=== PATIENT | male | born 1965 | race Caucasian/White ===

== ENCOUNTER 2019-11-10 15:57 | Observation (INO) | payer OTHER ==
[~2019-11-10] VITALS: Ht 175.3 cm; Wt 68.6 kg
--- NOTE | ~2019-11-10 | HEMODYNAMI ---
PATIENT:RAMSES KIMBALL MEDICAL RECORD: [id number] : 67 [id number] ADMISSION DATE: 11/10/19 Generatedon:11/11/201910:52 Patient name: RAMSES KIMBALL Patient #: [id number] : 1965 Date of study: 11/11/2019 Page: Of Hemodynamic Procedure Report Patient Data Patient Demographics Procedure consent was obtained First Name: RAMSES Gender: Male Last Name: JIGAR : 1965 Middle Initial: ROBLES Age: 54 year(s) Patient #: [id number] Race: SSN: [id number] Additional ID: [id number] Contact details Address: [address] [place] [address] circle State: [place] City: [place] Zip code: [address] Admission Admission Data Admission Date: 11/10/2019 Admission Time: 17:29 Arrival Date: 11/11/2019 Arrival Time: 17:29 Admit Source: Other Insurance Payor: Private Room #: D.2122 health insurance [facility] #: [id number] Height (in.): 68.9 BSA: 1.84 (m2) Height (cm.): 175 BMI: 22.53 (kg/m2) Weight (lbs.): 152.12 Weight (kg.): 69 Lab Results Lab Result Date: 11/11/2019 Lab Result Time: 0:00 Biochemistry Name Units Result Min Max BUN mg/dl 13 --(--*-)-- 7 18 Creatinine mg/dl 1 --(--*-)-- 0.6 1.3 eGFR ml/min 90 --(*---)-- 90 120 NONAFRICAN CBC Name Units Result Min Max Hemoglobin g/dl 15.3 --(-*--)-- 13.5 17.5 Procedure Procedure Types Cath Procedure Diagnostic Procedure LHC LHC w/Coronaries Peripheral Cath Diagnostic Procedure Delivery Man Peripheral Procedures Four Vessel Arteriogram Procedure Description Procedure Date Procedure Date: 11/11/2019 Procedure Start Time: 10:26 Procedure End Time: 10:41 Procedure Staff Name Function Mary Grace Barrington RT Monitor Zaid Hardy RN Nurse Jose Li MD Performing Physician Jaclyn Perez RT Scrub Indication Angina Procedure Data Cath Procedure Entry Location Entry Primary Successful Side Size Upsize Upsize Entry Closure Succes sful Closure Location (Fr) 1 (Fr) 2 (Fr) Remarks Device Remarks Femoral Right 5 Fr 6 Fr Exoseal artery Short Estimated blood loss: 5 ml Diagnostic catheters Device Type Used For End Catheter Placement MULTIPACK JL 4.0 5Fr Left Coronary catheter Angiography MULTIPACK 3DRC 5Fr Right Coronary catheter Angiography MULTIPACK Pigtail 5 Fr LV Angiography catheter Procedure Complications No complications Procedure Medications Medication Administration Route Dosage Oxygen etCO2 Nasal cannula 2 l/min Lidocaine 2% added to field 20 Heparin Flush Bag added to field 2 bags (1000units/500ml NS) 0.9% NaCl I.V. 100 ml/hr Versed I.V. 2 mg Fentanyl I.V. 50 mcg Versed I.V. 2 mg Fentanyl I.V. 50 mcg Heparin Bolus I.V. 4000 units Integrilin (Bolus I.V. 6.2 ml 2mg/ml) Plavix P.O. 600 mg Hemodynamics Rest HGB: 15.3 (g/dl) O2 Consumption: Estimated: 232.87 (ml/min) O2 Consumption index ed: Estimated:126.56 (ml/min/m) Heart Rate: 90 (bpm) Pressure Samples Time Site Value (mmHg) Purpose Heart Use Rate(bpm) 10:33 LV 132/14,22 Snapshot 97 10:34 AO 123/79(101) Pullback 93 Gradients Valve Time Site Site 2 Mean SEP/DFP Peak To Heart Use 1 (mmHg) (sec/min) Peak Rate (mmHg) (bpm) Aortic 10:34 LV AO 34 35 93 123/79(101) Calculations Valve P-P Mean Valve Index Valve Source Name Gradient Area Flow (cm2) Aortic 34 34 Snapshots Pre Cath Intra NCS Post Cath Vital Signs Time Heart Resp SPO2 etCO2 NIBP (mmHg) Rhythm Pain Sedation Rate (ipm) (%) (mmHg) Status Level (bpm) 10:21:34 91 14 96 0 137/96(108) NSR 0 (11) 10(A) , No pain 10:25:46 99 15 95 0 108/82(86) NSR 0 (11) 10(A) , No pain 10:29:44 87 18 94 17.3 129/88(118) NSR 0 (11) 10(A) , No pain 10:33:46 91 10 98 18.1 119/97(105) NSR 0 (11) 9(A) , No pain 10:37:51 87 11 98 15.1 109/78(92) NSR 0 (11) 9(A) , No pain 10:41:51 95 21 97 24.9 116/83(92) NSR 0 (11) 10(A) , No pain Medications Time Medication Route Dose Verified Delivered Reason Notes Effectiveness by by 10:20:29 0.9% NaCl I.V. 100 Jose Buffie Per physician ml/hr St El Hardy RN, MD 10:20:40 Oxygen etCO2 2 Jose Eugeneie used for Nasal l/min [facility] El Hardy RN procedure cannula 10:20:46 Lidocaine 2% added 20ml Jose Garcia for local to vial [facility] anesthetic field MD BRYAN 10:20:53 Heparin Flush added 2 Jose Jose used for Bag to bags [facility] procedure (1000units/500ml field MD BRYAN NS) 10:26:34 Versed I.V. 2 mg Jose Eugeneie for sedation [facility] El Hardy RN, MD 10:27:40 Fentanyl I.V. 50 Jose Buffie for sedation mcg [facility] El Hardy RN, MD 10:28:44 Versed I.V. 2 mg Jose Mar for sedation St El Hardy RN, MD 10:28:48 Fentanyl I.V. 50 Jose Mar for sedation mcg [facility] El Hardy RN, MD 10:35:09 Heparin Bolus I.V. 4000 Jose Eugeneie for verif ied units St El Hrady RN anticoagulation with dr MD anaya 10:37:27 Integrilin I.V. 6.2 Jose Mar for waste d (Bolus 2mg/ml) ml St El Hardy RN antiplatelet 3.8 ml therapy of vial 10:46:57 Plavix P.O. [address] Jose Mar for mg [facility] El Hardy RN antiplatelet therapy Procedure Log Time Note 10:01:37 Informed consent obtained and on chart 10:03:16 Admit Source: Other 10:03:25 Arrival Date: 11/11/2019 5:29:00 PM 10:05:13 Insurance Payor : Private health insurance 10:05:54 Patient Height : 68.9 inches 10:05:59 Patient Weight : 152.12 lbs 10:07:54 Lab Result : eGFR NONAFRICAN 90 ml/min 10::54 Lab Result : Hemoglobin 15.3 g/dl 10::54 Lab Result : BUN 13 mg/dl 10::54 Lab Result : Creatinine 1 mg/dl 10:08:01 Diagnostic Cath Status : Elective 10:08:24 Indication : Angina 10:08:30 Procedure Status Urgent Heart Cath (IP). 10:08:32 Jaclyn Chris RT(R) sent for patient. Start room use. 10:08:33 Time tracking: Regular hours (M-F 7:00 - 5:00) 10:08:38 Plan of Care:Hemodynamics will remain stable., Cardiac rhythm will remain stable., Comfort level will be maintained., Respiratory function will remain adequate., Patient/ family verbilizes understanding of procedure., Procedure tolerated without complication., Recovers from procedure without complications.. 10:11:02 Patient received from Med II to CCL 1 Alert and oriented. Tansferred to table in Supine position. 10:11:04 Warm blankets applied, and lloyd hugger turned on for patient comfort. 10:11:05 Correct patient and procedure confirmed by team. 10:11:06 ECG and BP/O2 sat monitors applied to patient. 10:20:29 0.9% NaCl 100 ml/hr I.V. was administered by Zaid Hardy RN; Per physician; Verbal order read back and verified. 10:20:40 Vital chart was started 10:20:40 Oxygen 2 l/min etCO2 Nasal cannula was administered by Zaid Hardy RN; used for procedure; Verbal order read back and verified. 10:20:41 Baseline sample Acquired. 10:20:44 Rhythm: sinus rhythm 10:20:46 Lidocaine 2% 20ml vial added to field was administered by Jose Li MD; for local anesthetic; Verbal order read back and verified. 10:20:46 Full Disclosure recording started 10:20:50 H&P Date Dictated: 11/11/2019 New H&P dictated by physician.. 10:20:52 Pre-op teaching completed and patient verbalized understanding. 10:20:52 Pre-procedure instructions explained to patient. 10:20:53 Heparin Flush Bag (1000units/500ml NS) 2 bags added to field was administered by Jose Li MD; used for procedure; Verbal order read back and verified. 10:20:54 Family in waiting room. 10:20:55 Patient NPO since Midnight. 10:21:12 Is the patient allergic to Iodine/contrast media? No. 10:21:13 Was the patient premedicated? Yes 10:21:14 Is patient on blood thinner?Yes 10:21:17 ACC The patient was administered the following blood thiners within the last 24 hours: Xarelto 10:21:20 Patient diabetic? No. 10:21:25 Previous problem with sedation/anesthesia? No ? 10:21:27 Snore? Yes 10:21:28 Sleep apnea? No 10:21:29 Opens mouth fully? Yes 10:21:29 Deviated septum? No 10:21:30 Sticks out tongue? Yes 10:21:34 Airway obstruction? No ? 10:21:37 Dentures? No ? 10:21:42 Pre procedure: right dorsailis pedis pulse 2+ Normal; easily identifiable; not easily obliterated 10:21:45 Pre procedure: left dorsailis pedis pulse 2+ Normal; easily identifiable; not easily obliterated 10:21:47 Patient pain scale 0/10 ?. 10:21:58 IV patent on arrival in right forearm with 0.9% NaCl at KVO. 10:22:00 Lab results completed and on chart. 10:22:06 Stress Test: no; N/A ? 10:25:20 Right groin area was prepped with chlora-prep and draped in sterile fashion 10:25:21 Sharps counted by scrub and verified by R.N. 10:25:21 Alarms reviewed by R. N. 10::23 --------ALL STOP TIME OUT------ 10:25:23 Physician arrived 10:25:24 Final Timeout: patient, procedure, and site verified with staff and physician. All members of the team are in agreement. 10:25:25 Right groin site verified by team. 10:25:29 Fire Safety Assessment: A--An alcohol-based skin anteseptic being used preoperatively., C--Open oxygen or nitrous oxide is being used., D--An ESU, laser, or fiber-optic light is being used. 10:25:32 Physical assessment completed. ASA score P 2 - A patient with mild systemic disease as per Jose Li MD. 10:25:37 1) 90+ Normal kidney functon but urine findings or structural abnormalities or genetic trait point to kidney disease. 10:25:44 Maximum allowable contrast dose (3.7 X eGFR X 0.75)249 ml. 10:25:48 Sedation plan: IV Moderate Sedation Medication:Versed, Fentanyl 10:26:23 Use device set Femoral Dx 10:26:24 Bag Decanter (2002S) opened to sterile field. 10:26:24 ACIST Syringe (03739) opened to sterile field. 10:26:25 Medline Cath Pack ([id number]) opened to sterile field. 10:26:26 ACIST Hand Control (79536) opened to sterile field. 10:26:27 DIAGNOSTIC Multipack 5Fr catheter set (SV1288) opened to sterile field. 10:26:27 ACIST Manifold (83699) opened to sterile field. 10:26:34 Versed 2 mg I.V. was administered by Zaid Hardy RN; for sedation; Verbal order read back and verified. 10:26:35 EMERALD Guide Wire (941-447) opened to sterile field. 10:26:35 SHEATH 5FR Spangle (WUC821) opened to sterile field. 10:26:39 Procedure started. 10:26:41 Local anesthetic to right femoral artery with Lidocaine 2% by Jose Li MD.INITIAL ACCESS ONLY 10:26:51 A 5 Fr sheath was inserted into the Right Femoral artery 10:27:04 A MULTIPACK JL 4.0 5Fr catheter was advanced over the wire and used for Left Coronary Angiography. 10:27:40 Fentanyl 50 mcg I.V. was administered by Zaid Hardy RN; for sedation; Verbal order read back and verified. 10:27:42 LCA angiography performed. 10:27:48 Injector settings: Ml/sec: 3, Volume: 6, 10:27:59 Procedure type changed to Cath procedure, Diagnostic procedure, LHC, LHC w/Coronaries, Peripheral Cath Diagnostic Procedure, Delivery Man Peripheral Procedures, Four Vessel Arteriogram 10:28:36 Catheter removed. 10:28:41 A MULTIPACK 3DRC 5Fr catheter was advanced over the wire and used for Right Coronary Angiography. 10::44 Versed 2 mg I.V. was administered by Zaid Hardy RN; for sedation; Verbal order read back and verified. 10:28:48 Fentanyl 50 mcg I.V. was administered by Zaid Hardy RN; for sedation; Verbal order read back and verified. 10:29:36 RCA angiography performed. 10::44 Injector settings: Ml/sec: 3, Volume: 6, 10:29:54 Bilateral carotid angiography performed. 10:32:54 Catheter removed. 10:32:59 A MULTIPACK Pigtail 5 Fr catheter was advanced over the wire and used for LV Angiography. 10:33:30 LV hemodynamics recorded. 10:33:31 LV gram done using GARCIA 10:33:34 Injector settings: Ml/sec: 5, Volume: 15, 10:34:22 EF : 55 % 10:34:25 Catheter removed. 10:34:26 Proceeding to intervention. 10:34:41 SHEATH 6FR Spangle (EFC850) opened to sterile field. 10:34:45 WHISPER 300cm guide wire ([id number]) opened to sterile field. 10:34:59 GUIDE 6FR XBLAD 3.5 catheter ([id number]) opened to sterile field. 10:35:00 INFLATOR Merit BasixCompak (MH2706) opened to sterile field. 10:35:09 Heparin Bolus 4000 units I.V. was administered by Zaid Hardy RN; for anticoagulation; verified with dr anaya Verbal order read back and verified. 10:35:25 Sheath upsized to a 6 Fr Short. 10:35:31 6 Fr XBLAD 3.5 guide catheter was inserted over the wire 10:35:36 WHISPER wire advanced. 10:36:44 Wire advanced across lesion. 10:37:27 Integrilin (Bolus 2mg/ml) 6.2 ml I.V. was administered by Zaid Hardy RN; for antiplatelet therapy; wasted 3.8 ml of vial Verbal order read back and verified. 10:39:53 Place stent Inflation Number: 1 A ELYSE OTW 3.0 x 26 stent ([id number]) was prepped and advanced across the Prox LAD 80. The stent was deployed at 14 LOY for 0:30 (min:sec) 0. 10:40:22 Stent catheter was removed intact over wire. 10:40:23 Guide catheter removed. 10:40:23 Wire removed. 10:40:30 EXOSEAL 6Fr (EX600) opened to sterile field. 10:40:43 Sheath removed intact; hemostasis achieved with Exoseal to the Right Femoral artery. 10:40:46 Procedure ended.(Physican Out) 10:41:18 Post Procedure Pulses reassessed and unchanged 10:41:21 Post procedure rhythm: unchanged. 10:41:23 Estimated blood loss: 5 ml 10:41:25 Patient needs reinforcement of post procedure teaching. 10:41:25 Post procedure instruction explained to patient.Patient verbalizes understanding. 10:41:31 Procedure Complication : No complications 10:41:33 Vital chart was stopped 10:41:35 [facility] Findings: MVD- PCI performed (see procedure note) 10:41:39 See physician's report for complete and final results. 10:41:39 Operative report dictated upon procedure completion. 10:41:41 Report given to Med II. 10:41:44 Full Disclosure recording stopped 10:41:44 Procedure ended. 10:42:06 ACC-PCI Only Patient was given prescriptions, or instructed by Jose Li MD to start/continue the following medications upon discharge: Plavix 10:42:11 End room use (Document Last) 10:46:57 Plavix 600 mg P.O. was administered by Zaid Hardy RN; for antiplatelet therapy; Verbal order read back and verified. 10:47:36 ACT drawn and resulted at 252 seconds. (normal therapeutic range 180-240 seconds). Intervention Summary Intervention Notes Time ActionType Lesion and Equipment Action# Pressure Duration Attributes Used 10:39:53 Place stent Prox LAD ELYSE OTW 3.0 1 14 00:30 x 26 stent ([id number]) Device Usage Item Name Manufacture Quantity Catalog Hospital Part Current Mini mal Lot# / Number Charge Number Stock Stock Serial# Code ACIST Syringe Acist 1 93184 312835 697195 136830 20 (87182) Medical Zentric Inc Bag Decanter Microtek 1 281994 70994 724604 5 () Pebble Inc. Medline Cath Medline 1 [id number] 442796 64612 298369 5 Pack ([id number]) ACIST Hand Acist 1 05240 867686 776382 422799 5 Control Medical (04426) Systems Inc ACIST Acist 1 80475 249335 320075 927917 5 Manifold Medical (38538) Systems Inc DIAGNOSTIC Cardinal 1 [id number] 236247 10765 134639 30 Multipack 5Fr Health catheter set (SB0317) SHEATH 5FR Terumo 1 FZE352 915082 844085 096403 5 Spangle (EQC166) EMERALD Guide Cardinal 1 502-455 606651 566932 084978 5 Wire Health (502-455) MULTIPACK JL Cardinal 1 915222 5 4.0 5Fr Health catheter MULTIPACK Cardinal 1 590900 5 3DRC 5Fr Health catheter MULTIPACK Cardinal 1 893928 5 Pigtail 5 Fr Health catheter SHEATH 6FR Terumo 1 EDJ345 898227 826105 366597 40 Spangle (XQP760) WHISPER 300cm Ngo 1 [id number] 482218 434828 515340 5 guide wire Vascular (3564325ZC) GUIDE 6FR Cardinal 1 [id number] 441634 197047 728813 10 XBLAD 3.5 Health catheter (72310456) INFLATOR Merit 1 XJ5978 954985 081828 912059 15 [facility] Medical BasixCompak (CI7390) ELYSE OTW 3.0 Medtronic 1 [id number] 623529 7192488 675777 5 [id number] x 26 stent ([id number]) EXOSEAL 6Fr Cardinal 1 EX600 965165 007317 696867 10 (EX600) Health Signature Audit [place] Stage Time Signature Unsigned Intra-Procedure 11/11/2019 Mary Grace Ferris 10:45:20 AM RT(R) Intra-Procedure 11/11/2019 Zaid Hardy RN 10:45:55 AM Intra-Procedure 11/11/2019 Mary Grace Ferris 10:50:37 AM RT(R); Jose Li MD [facility] [address] [place] [address]
[2019-11-10] MEDS ORDERED: LISINOPRIL20 MG PO (16:05)
[2019-11-10] MEDS ORDERED: LIPITOR80 MG PO (16:05)
[2019-11-10 16:23] LABS: BASOPHILS 0.3 % (0-2); HEMATOCRIT 43.5 % (42.0-54.0); HEMOGLOBIN 15.3 g/dL (13.5-17.5); IMMATURE GRANULOCYTES 0.3 % (0-5); LYMPHOCYTES 28.2 % (15-50); MCH 32.4 pg (26.0-34.0); MCHC 35.2 g/dL (31.0-37.0); MCV 92.2 fL (80.0-100.0); MEAN PLATELET VOLUME 8.3 fL (7.4-10.4); MONOCYTES 9.5 % (2-11); NEUTROPHILS 59.7 % (40-80); PLATELET COUNT 191 10x3/uL (130-400); RBC 4.72 10x6/uL (4.20-6.10); RDW 12.1 % (11.5-14.5); WBC 7.6 10x3/uL (4.8-10.8)
[2019-11-10 16:33] VITALS: BP 157/96
[2019-11-10 16:40] LABS: APTT 27.6 SECONDS (22.8-39.4); CALC OSMOLALITY 270 mosm/kg (275-300); CALCIUM 10.4 mg/dL (8.5-10.1); CHLORIDE - SERUM 98 mmol/L (98-107); GLUCOSE 118 mg/dL (74-106); INR 0.88 (0.85-1.17); POTASSIUM - SERUM 3.9 mmol/L (3.5-5.1); SODIUM 135 mmol/L (136-145); UREA NITROGEN 13 mg/dL (7-18); eGFR NON AFRICAN AMERICAN 83 mL/min (90-120)
[2019-11-10 16:57] LABS: ALBUMIN 4.2 g/dL (3.4-5.0); ALKALINE PHOSPHATASE 53 U/L (46-116); ALT (SGPT) 33 U/L (10-68); BILIRUBIN - TOTAL 0.35 mg/dL (0.2-1.3); CKMB 1.5 U/L (0.0-3.6); CREATINE KINASE 112 UL (21-232); MAGNESIUM - SERUM 1.9 mg/dL (1.8-2.4); PROTEIN - SERUM 7.9 g/dL (6.4-8.2)
[2019-11-10 16:58] LABS: TROPONIN-I < 0.017 ng/mL (0.000-0.060)
[2019-11-10 17:30] VITALS: BP 143/84
[2019-11-10 18:30] VITALS: BP 130/93
[2019-11-10 19:30] VITALS: BP 131/87
[2019-11-10] MEDS ORDERED: TRAZODONE HCL150 MG PO (21:32)
--- NOTE | 2019-11-10 21:44 | NUR ---
RECEIVED FROM ER, PT IS A&OX4, 20G.-RFA, PROVIDED A SANDWICH AND DRINK, HISTORY AND MEDS REVIEWED, PT ASK ME TO CALL DARWIN , LEFT MESSAGE AND NUMBER TO ROOM, BED IS LOW, SRX2, CALL LIGHT IN REACH, WILL CONTINUE PLAN OF CARE
[2019-11-11] VITALS: BP 139/92
[2019-11-11 00:24] VITALS: BP 131/94; Ht 175.3 cm; Wt 68.6 kg
[2019-11-11 00:45] LABS: CKMB 1.2 U/L (0.0-3.6); CREATINE KINASE 111 UL (21-232); TROPONIN-I < 0.017 ng/mL (0.000-0.060)
[2019-11-11 04:00] VITALS: BP 140/103
[2019-11-11 06:24] LABS: CKMB 1.4 U/L (0.0-3.6); CREATINE KINASE 103 UL (21-232); TROPONIN-I < 0.017 ng/mL (0.000-0.060)
--- NOTE | 2019-11-11 08:18 | NUR ---
ALERT AND ORIENTED. DENIES ANY PAIN. TELEMERTY SHOWS SR 95. RIGHT FA SL. UP AB PAULY. AWAITING DOCTOR FOR FUTHER ORDERS
[2019-11-11 09:16] LABS: BASOPHILS 0.3 % (0-2); EOSINOPHILS 1.5 % (0-7); HEMATOCRIT 42.1 % (42.0-54.0); HEMOGLOBIN 14.2 g/dL (13.5-17.5); IMMATURE GRANULOCYTES 0.2 % (0-5); LYMPHOCYTES 29.4 % (15-50); MCH 31.5 pg (26.0-34.0); MCHC 33.7 g/dL (31.0-37.0); MCV 93.3 fL (80.0-100.0); MONOCYTES 11.3 % (2-11); NEUTROPHILS 57.3 % (40-80); PLATELET COUNT 215 10x3/uL (130-400); RBC 4.51 10x6/uL (4.20-6.10); RDW 12.3 % (11.5-14.5)
[2019-11-11 09:18] LABS: WBC 9.9 10x3/uL (4.8-10.8)
[2019-11-11 09:34] LABS: ALT (SGPT) 30 U/L (10-68); CALC OSMOLALITY 272 mosm/kg (275-300); CALCIUM 9.5 mg/dL (8.5-10.1); CARBON DIOXIDE 29.4 mmol/L (21.0-32.0); CHLORIDE - SERUM 99 mmol/L (98-107); CHOL - HDL RATIO 6.3 ratio (2.3-4.9); CHOLESTEROL, TOTAL 263 mg/dL (0-200); GLUCOSE 93 mg/dL (74-106); HDL CHOLESTEROL 42 mg/dL (32-96); SODIUM 136 mmol/L (136-145); UREA NITROGEN 16 mg/dL (7-18); eGFR NON AFRICAN AMERICAN 83 mL/min (90-120)
[2019-11-11 09:35] LABS: POTASSIUM - SERUM 5.1 mmol/L (3.5-5.1); TRIGLYCERIDE 592 mg/dL (30-200)
--- NOTE | 2019-11-11 11:28 | NUR ---
BACK FROM ASSOCIATE PATHOLOGIST. VS STABLE. RIGHT GROIN SOFT WITH DRSG DRY AND INTACT. PPP. TELEMERTY SHOWS SR. WILL MONITOR
[2019-11-11 12:00] VITALS: BP 107/78
--- NOTE | 2019-11-11 13:50 | NUR ---
PT SLEEPING. RIGHT GROIN SOFT WITH DRSG DRY AND INTACT.PPP. NO NEEDS NOTED. WILL MONITOR
[2019-11-11] MEDS ORDERED: FENOFIBRATE160 MG PO (16:32)
[2019-11-11] MEDS ORDERED: LOW DOSE ASPIRI81 M1 PO (16:39)
[2019-11-11] MEDS ORDERED: PLAVIX75 MG PO (16:39)
--- NOTE | 2019-11-11 17:57 | NUR ---
PT DISCHARGED. IV DCD WITH TIP INTACT. RIGHT GROIN SOFT, NO BLEEDING. INSTRUCTIONS GIVEN. TO PRIVATE CAR PER WHEEL CHAIR
--- NOTE | 2019-11-12 09:17 | MORECARE ---
CASE MANAGEMENT DISCHARGE SUMMARY PATIENT: RAMSES KIMBALL RAY UNIT: [id number] ADM DATE: 11/10/19 AGE: 54 : 67 SEX: M ROOM/BED: D.7612 AUTHOR: ARMANDO BYRD PHYSICIAN: REFERRING PHYSICIAN: DANIEL PONCE MD DATE OF SERVICE: 11/12/19 Discharge Plan Patient Name: RAMSES KIMBALL [facility] [facility] 1965 Planned Disposition: Home Anticipated Discharge Date: 11/11/19 Discharge Date: 11/11/2019 Expected LOS: 1 Initial Reviewer: [id number] Initial Review Date: 11/12/2019 Generated: 11/12/19 10:17 am Patient Name: RAMSES KIMBALL Page 33093 at 0917 All edits/amendments must be made on the electronic document DICTATION DATE: 11/12/19916 MOLD HOISTER: JAEL 11/12/19916 RPT#: [id number] DC DATE:11/11/19 STATUS: DIS IN [facility] [address] [place] [address] END OF REPORT
--- NOTE | 2019-11-12 12:18 | CN ---
PATIENT NAME:RAMSES KIMBALL MEDICAL RECORD: [id number] : 67 LOCATION:. D.2122 ADMIT DATE: 11/10/19 ACCOUNT: [id number] CONSULTING PHYSICIAN: VINCENT MATA MD REFERRING PHYSICIAN: DANIEL PONCE MD DATE OF CONSULTATION: 11/11/2019 HISTORY OF PRESENT ILLNESS: A 54-year-old gentleman with a history of hypertension, familial hyperlipidemia, coronary artery disease, presented with chest tightness, pressure radiating to the jaw, additionally reports left arm numbness and tingling accompanied by visual changes consistent with amaurosis fugax. Symptoms being progressing since Tuesday. We are asked to see him concerning his cardiovascular status. PAST MEDICAL HISTORY: Includes: 1. History of hypertension. 2. Hyperlipidemia. ALLERGIES: PENICILLIN. MEDICATIONS: Include lisinopril 20 mg p.o. day, atorvastatin 80 mg p.o. daily, trazodone 100 mg p.o. at bedtime. SOCIAL HISTORY: Smokes about a pack a day, nondrinker. No set exercise program. REVIEW OF SYSTEMS: The patient reports easy bruising but reports no swollen glands. The patient reports no fever, no night sweats, no significant weight gain, no significant weight loss. No significant exercise tolerance. The patient reports no dry eyes, no irritation, no vision change. Patient reports no difficulty hearing and no ear pain. Patient reports no frequent nose bleeds or nose and sinus problems. Patient reports on arm pain on exertion. No shortness of breath while lying down. No history of heart murmur. Patient reports no cough, no wheezing or coughing up blood. Patient reports no abdominal pain, no vomiting. Normal appetite. No diarrhea and not vomiting blood. No nausea and no constipation. Patient reports no incontinence. No difficulty urinating. No hematuria. No increased frequency. Patient reports no muscle aches. No weakness, no arthralgias, no back pain. No swelling of the extremities. Patient reports no abnormal mole, no jaundice, no rashes. Reports no loss of consciousness. No weakness and no numbness. No seizures, dizziness, or headaches. The patient reports no depression, no sleep disturbance, feeling safe in a relationship and no alcohol abuse. Patient reports on fatigue. Reports no runny nose or sinus pressure. No itching, no hives, and no frequent sneezing. PHYSICAL EXAMINATION: GENERAL: Pleasant gentleman, in no acute distress. VITAL SIGNS: Blood pressure 140/103, pulse 88 and regular. HEENT: Normocephalic, atraumatic. NECK: No bruits noted. HEART: Regular. LUNGS: Fair air excursion, few expiratory wheezes. ABDOMEN: Soft, nontender. EXTREMITIES: Pulse 2+. No edema. CONSULT REPORT [id number] JIGAR,URBAN RAY DIAGNOSTIC DATA: EKG shows nonspecific ST-T changes inferolaterally. IMPRESSION: 1. Acute coronary syndrome. Multiple risk factors including ECG changes inferolaterally. 2. Amaurosis fugax with visual changes and left arm numbness and tingling. PLAN: We will plan for angiography as well as 4-vessel arteriography and intervention based on above. TRANSINT:[id number] Voice Confirmation ID: [id number] DOCUMENT ID: [id number] VINCENT MATA MD at 1218 CC: [id number] DICTATION DATE: 11/11/19 1013 KNOT CUTTER: 11/11/19 1243 DIS IN 11/11/19 [facility] [address] [place] [address]
--- NOTE | 2019-11-12 12:18 | OP ---
PATIENT NAME: RAMSES KIMBALL MEDICAL RECORD: [id number] :67 LOCATION:D.M2 D.2122 ADMISSION DATE:11/10/19 SURGEON: VINCENT MATA MD DATE OF OPERATION: 11/11/2019 PROCEDURES: Cath, plus PTCA stent to LAD, plus 4-vessel arteriography, right femoral artery approach. CATHETERS: A 5-Polish sheath, 5/4 left and right Jennifer, 5/4 pig. FINDINGS: Left ventriculography in 30-degree GARCIA view shows anterior hypokinesis. Overall, function is preserved at 50%. CORONARY ANATOMY: LEFT MAIN: Left main is free of disease. LAD: Has a diffuse 80% stenosis in its proximal portion down for takeoff of the first diagonal. CIRCUMFLEX: Free of disease. RIGHT CORONARY ARTERY: Dominant artery, gives rise to PDA, free of disease. Four-vessel arteriography to assess left-sided weakness with amaurosis. Right: Right common carotid artery was selectively engaged, smooth-walled vessel, free of disease. Right internal carotid was smooth-walled vessel, free of disease. Right external carotid was smooth-walled vessel, free of disease. Left: Left internal carotid was subselectively engaged, this showed smooth-walled common carotid. It was free of disease. Left external carotid was smooth-walled, free of disease. Left external carotid was smooth-walled vessel, free of disease. DESCRIPTION OF PROCEDURE: A 5-Polish sheath was exchanged for a 6-Polish sheath. XB LAD guiding catheter provided good guide catheter support followed by a 300 cm Whisper wire was placed across the diffuse 80% stenosis LAD. Next, we placed a long 3.0 x 26 mm Maicol drug-eluting stent up to 14 atmospheres for 45 seconds. Final angiography shows excellent resolution to no significant residual with nice pumping of the distal vasculature as well. Sheath was closed with ExoSeal device. Plavix was loaded in the lab. TRANSINT:[id number] Voice Confirmation ID: [id number] DOCUMENT ID: [id number] VINCENT MATA MD at 1218 CC: [id number] DICTATION DATE: 11/11/19 1049 PAINT LINE OPERATOR: 11/11/19 1600 DIS IN 11/11/19 [facility] [id number] [place] [address]
== END 2019-11-11 17:59 | disposition home or self-care (01) ==
LOC: D.ER 15:57 → OBSVTIME 17:29 → D.M2 17:29
PROVIDERS: Emergency Medicine; Internal Medicine Interventional Cardiology; ADMIT Family Medicine; ATTEND Family Medicine
DX: I24.9 Acute ischemic heart disease, unspecified (principal); R20.0 Anesthesia of skin; I25.110 Atherosclerotic heart disease of native coronary artery with unstable angina pectoris; E78.5 Hyperlipidemia, unspecified; G45.3 Amaurosis fugax; F17.203 Nicotine dependence unspecified, with withdrawal; I10 Essential (primary) hypertension

== ENCOUNTER → 2020-04-30 17:04 | Outpatient (CLI) | payer OTHER ==
[2019-11-11 00:24] VITALS: BMI 22.3
[~2020-04-30 17:04] MED LIST: FENOFIBRATE160 MG PO; LIPITOR80 MG PO; LISINOPRIL20 MG PO; LOW DOSE ASPIRI81 M1 PO; PLAVIX75 MG PO; TRAZODONE HCL150 MG PO
[2020-04-30 18:16] LABS: CHOL - HDL RATIO 4.2 ratio (2.3-4.9); LDL-HDL RATIO 2.5 ratio (1.5-3.5)
== END | disposition home or self-care (01) ==
LOC: D.LABREF 17:04
PROVIDERS: ATTEND Nurse Practitioner
DX: E78.5 Hyperlipidemia, unspecified (principal)

== ENCOUNTER 2020-07-06 14:02 | Emergency (ER) | payer OTHER ==
[~2020-07-06] VITALS: Ht 175.3 cm; Wt 66.7 kg
[2020-07-06 14:18] VITALS: Ht 175.3 cm; Wt 66.7 kg
[2020-07-06] MEDS ORDERED: LOVAZA (14:22)
[2020-07-06] MEDS ORDERED: CYCLOBENZAPRINE10 MG (14:22)
[2020-07-06] MEDS ORDERED: OMEGA 3 (14:22)
[2020-07-06 15:19] LABS: BASOPHILS 0.5 % (0-2); EOSINOPHILS 3.5 % (0-7); HEMATOCRIT 42.1 % (42.0-54.0); IMMATURE GRANULOCYTES 0.6 % (0-5); LYMPHOCYTES 19.6 % (15-50); MCH 30.4 pg (26.0-34.0); MCHC 33.3 g/dL (31.0-37.0); MCV 91.3 fL (80.0-100.0); NEUTROPHILS 63.8 % (40-80); PLATELET COUNT 206 10x3/uL (130-400); RBC 4.61 10x6/uL (4.20-6.10); WBC 6.6 10x3/uL (4.8-10.8)
[2020-07-06 15:28] LABS: ANION GAP 13.2 mmol/L (8-16); CALCIUM 9.9 mg/dL (8.5-10.1); CARBON DIOXIDE 26.7 mmol/L (21.0-32.0); CREATININE - SERUM 1.3 mg/dL (0.6-1.3); POTASSIUM - SERUM 3.9 mmol/L (3.5-5.1)
[2020-07-06] MEDS ORDERED: ACETAMINOPHEN500 M1 PO (15:34)
[2020-07-06] MEDS ORDERED: IBUPROFEN800 MG PO (15:34)
[2020-07-06] MEDS ORDERED: CYCLOBENZAPRINE10 MG PO (15:34)
[2020-07-06 15:36] LABS: ALBUMIN 4.5 g/dL (3.4-5.0); BILIRUBIN - TOTAL 0.26 mg/dL (0.2-1.3)
[2020-07-06 15:40] VITALS: BP 118/86
== END 2020-07-06 15:41 | disposition home or self-care (01) ==
LOC: D.ER 14:02
PROVIDERS: Family Medicine
DX: M43.6 Torticollis (principal); M79.18 Myalgia, other site; M54.2 Cervicalgia; T14.8XXA Other injury of unspecified body region, initial encounter